=== PATIENT | male | born 1975 | race Caucasian/White ===

== ENCOUNTER 2016-12-03 08:24 | Emergency (ER) | payer OTHER ==
[2016-12-03 08:43] VITALS: BP 142/99; PULSE 91; RESP 18; TEMP 98.9
--- NOTE | 2016-12-03 08:55 | ED ---
General Adult HPI - General Chief complaint: Dental/Oral Stated complaint: DENTAL PAIN Time Seen by Provider: 12/03/16 08:43 Source: patient, RN notes reviewed Mode of arrival: ambulatory Limitations: no limitations - History of Present Illness Initial comments: Patient 40-year-old male who presents emergency room today with chief complaint of increased dental pain. He does admit to a fracture of tooth #5. He states that he was eating something a few days ago when it broke. He does admit to chronic dental problems. Since: Stents is unable to get in until next week. They're advised to come to the emergency room. Patient denies any drainage discharge. Denies any other complaints or associated symptoms. States is not taking any pain medications for this. Patient denies any recent fever, chills, shortness of breath, chest pain, back pain, abdominal pain, nausea or vomiting, numbness or tingling, dysuria or hematuria, constipation or diarrhea, headaches or visual changes, or any other complaints. - Related Data Home Medications Medication Instructions Recorded Confirmed ALPRAZolam [Xanax] 1 mg PO Q8HR 11/01/15 11/01/15 Citalopram Hydrobromide [CeleXA] 40 mg PO DAILY 11/01/15 11/01/15 Previous Rx's Medication Instructions Recorded Penicillin V Potassium [Pen Vee K] 500 mg PO TID #40 tab 11/01/15 traMADol HCl [Ultram] 50 mg PO Q4H PRN #20 tab 11/01/15 Acetaminophen-Codeine 300-30mg 1 each PO Q6H PRN #20 tablet 12/03/16 [Tylenol #3] Ibuprofen [Motrin] 800 mg PO Q6HR PRN #30 tab 12/03/16 Penicillin V Potassium [Pen Vee K] 500 mg PO QID 10 Days 12/03/16 Allergies Allergy/AdvReac Type Severity Reaction Status Date / Time No Known Allergies Allergy Verified 12/03/16 08:42 Review of Systems ROS Statement: Those systems with pertinent positive or pertinent negative responses have been documented in the HPI. ROS Other: All systems not noted in ROS Statement are negative. Past Medical History Past Medical History: No Reported History History of Any Multi-Drug Resistant Organisms: None Reported Past Surgical History: No Surgical Hx Reported Past Psychological History: Anxiety, Depression Smoking Status: Never smoker Past Alcohol Use History: None Reported Past Drug Use History: None Reported General Exam - General Exam Comments Initial Comments: General: The patient is awake and alert, in no distress, and does not appear acutely ill. Eye: Pupils are equal, round and reactive to light, extra-ocular movements are intact. No nystagmus. There is normal conjunctiva bilaterally. No signs of icterus. Ears, nose, mouth and throat: There are moist mucous membranes and no oral lesions. Patient does have poor dental hygiene. Does have a fracture Walls 2 type fracture of the fifth tooth. Multiple cavities and missing teeth. No sign of abscess. Neck: The neck is supple, there is no tenderness or JVD. Cardiovascular: There is a regular rate and rhythm. No murmur, rub or gallop is appreciated. Respiratory: Lungs are clear to auscultation, respirations are non-labored, breath sounds are equal. No wheezes, stridor, rales, or rhonchi. Musculoskeletal: Normal ROM, no tenderness. Strength 5/5. Sensation intact. Pulses equal bilaterally 2+. Neurological: A&O x 3. CN II-XII intact, There are no obvious motor or sensory deficits. Coordination appears grossly intact. Speech is normal. Skin: Skin is warm and dry and no rashes or lesions are noted. Psychiatric: Cooperative, appropriate mood & affect, normal judgment. Limitations: no limitations Course Vital Signs 12/03/16 08:40 Temperature 98.9 F Pulse Rate 91 Respiratory 18 Rate Blood Pressure 142/99 O2 Sat by Pulse 97 Oximetry Medical Decision Making - Medical Decision Making Patient will be started on antibiotics cover for infections given pain medications to use. Advised use [id number] topical gel for pain relief. Patient advised follow-up dentist as soon as possible. Disposition Clinical Impression: Pain, dental Disposition: HOME SELF-CARE Condition: Good Instructions: Toothache (ED) Additional Instructions: Please use medications as prescribed. Please follow-up with dentist as discussed. Please return to emergency room for any symptoms increase or worsen or for any other concerns. Prescriptions: Acetaminophen-Codeine 300-30mg [Tylenol #3] 1 each PO Q6H PRN #20 tablet PRN Reason: Pain Ibuprofen [Motrin] 800 mg PO Q6HR PRN #30 tab PRN Reason: Pain Penicillin V Potassium [Pen Vee K] 500 mg PO QID 10 Days Time of Disposition: 08:54
== END 2016-12-03 09:03 | disposition home or self-care (01) ==
LOC: EC 08:24
DX: S02.5XXA Fracture of tooth (traumatic), initial encounter for closed fracture (principal); F41.9 Anxiety disorder, unspecified; F32.9 Major depressive disorder, single episode, unspecified; Z79.899 Other long term (current) drug therapy; X58.XXXA Exposure to other specified factors, initial encounter
CPT/HCPCS: 99282

== ENCOUNTER 2017-04-30 01:21 | Emergency (ER) | payer OTHER ==
[2017-04-30 01:27] VITALS: BP 138/72; PULSE 84; RESP 18; TEMP 97.2
[2017-04-30] MEDS ORDERED: ACET/COD 300 MG/30 MG STARTER PACK 6 TAB BTL PO STA (02:04)
[2017-04-30] MEDS ORDERED: PENICILLIN VK 500MG STARTER 4 TAB BTL PO STA (02:04)
--- NOTE | 2017-04-30 02:07 | ED ---
ENT HPI - General Chief complaint: Dental/Oral Stated complaint: dental pain Time Seen by Provider: 04/30/17 01:46 Source: patient, RN notes reviewed, old records reviewed Mode of arrival: ambulatory Limitations: no limitations - History of Present Illness Initial comments: 41-year-old male presents emergency Department chief complaint of dental pain for the past 3 days. He has history of poor dentition. He does see a dental clinic in [place]. He reports he cannot have an appointment for the next 2 weeks. Patient states that he's had no fever or chills, denies any foul odor or discharge. Patient states that the pain is mainly over tooth 7, and right lower molars. Patient does have multiple teeth that are missing. - Related Data Home Medications Medication Instructions Recorded Confirmed ALPRAZolam [Xanax] 1 mg PO Q8HR 11/01/15 04/30/17 Citalopram Hydrobromide [CeleXA] 40 mg PO DAILY 11/01/15 04/30/17 Previous Rx's Medication Instructions Recorded Ibuprofen [Motrin] 800 mg PO Q6HR PRN #30 tab 12/03/16 Acetaminophen-Codeine 300-30mg 1 tab PO Q6H PRN #20 tablet 04/30/17 [Tylenol #3] Penicillin V Potassium [Pen Vee K] 500 mg PO QID #40 tab 04/30/17 Allergies Allergy/AdvReac Type Severity Reaction Status Date / Time No Known Allergies Allergy Verified 04/30/17 01:27 Review of Systems ROS Statement: Those systems with pertinent positive or pertinent negative responses have been documented in the HPI. ROS Other: All systems not noted in ROS Statement are negative. Past Medical History Past Medical History: No Reported History History of Any Multi-Drug Resistant Organisms: None Reported Past Surgical History: Hernia Repair Past Psychological History: Anxiety, Depression Smoking Status: Former smoker Past Alcohol Use History: None Reported Past Drug Use History: None Reported General Exam - General Exam Comments Initial Comments: 32-year-old male. Patient does not appear to be in any acute distress. Limitations: no limitations General appearance: alert, in no apparent distress Head exam: Present: atraumatic, normocephalic, normal inspection Eye exam: Present: normal appearance, PERRL, EOMI. Absent: scleral icterus, conjunctival injection, periorbital swelling ENT exam: Present: normal exam. Absent: normal oropharynx (poor dentition, patient has missing tooth 6-4. Patient reports pain on tooth 7 ) Neck exam: Present: normal inspection. Absent: tenderness, meningismus, lymphadenopathy Respiratory exam: Present: normal lung sounds bilaterally. Absent: respiratory distress, wheezes, rales, rhonchi, stridor Cardiovascular Exam: Present: regular rate, normal rhythm, normal heart sounds. Absent: systolic murmur, diastolic murmur, rubs, gallop, clicks GI/Abdominal exam: Present: soft, normal bowel sounds. Absent: distended, tenderness, guarding, rebound, rigid Extremities exam: Present: normal inspection, full ROM, normal capillary refill. Absent: tenderness, pedal edema, joint swelling, calf tenderness Back exam: Present: normal inspection Neurological exam: Present: alert, oriented X3, CN II-XII intact Psychiatric exam: Present: normal affect, normal mood Skin exam: Present: warm, dry, intact, normal color. Absent: rash Course Vital Signs 04/30/17 01:23 Temperature 97.2 F L Pulse Rate 84 Respiratory 18 Rate Blood Pressure 138/72 O2 Sat by Pulse 96 Oximetry Medical Decision Making - Medical Decision Making 41-year-old male presents emergency Department chief complaint of dental pain for the past 3 days. He has history of poor dentition. He does see a dental clinic in [place]. Patient has severely poor dentition, multiple missing teeth and dental caries on the remaining teeth. Patient's tender around tooth # 7. Patient be started on Pen-Vee K, pain medication. Discussed close follow- up with dental. Patient does not want to have a nerve block at this time. Patient is history plan will comply. Return parameters were discussed. Disposition Clinical Impression: Pain, dental Disposition: HOME SELF-CARE Condition: Good Instructions: Dental Abscess (ED), Dental Caries (ED) Additional Instructions: Patient has a follow-up with primary care provider. Return to emergency department if any alarming signs or symptoms occur. Prescriptions: Acetaminophen-Codeine 300-30mg [Tylenol #3] 1 tab PO Q6H PRN #20 tablet PRN Reason: Pain Penicillin V Potassium [Pen Vee K] 500 mg PO QID #40 tab Referrals: Rafita Barrera MD [Primary Care Provider] - 1-2 days Time of Disposition: 02:04
== END 2017-04-30 02:31 | disposition home or self-care (01) ==
LOC: EC 01:21
DX: K08.89 Other specified disorders of teeth and supporting structures (principal); K02.9 Dental caries, unspecified; F41.9 Anxiety disorder, unspecified; F32.9 Major depressive disorder, single episode, unspecified; Z87.891 Personal history of nicotine dependence; Z79.899 Other long term (current) drug therapy
CPT/HCPCS: 99283

== ENCOUNTER 2018-11-28 18:25 | Emergency (ER) | payer OTHER ==
[2018-11-28 18:34] VITALS: BP 139/90; PULSE 90; RESP 18; TEMP 98
[2018-11-28] MEDS ORDERED: ACET/COD 300 MG/30 MG STARTER PACK 6 TAB BTL PO STA (19:10)
--- NOTE | 2018-11-28 19:10 | ED ---
General Adult HPI - General Chief complaint: Dental/Oral Stated complaint: dental pain Time Seen by Provider: 11/28/18 18:34 Source: patient, RN notes reviewed, old records reviewed Mode of arrival: ambulatory Limitations: no limitations - History of Present Illness Initial comments: 42-year-old male patient presents to ED with dental pain. Patient reports he had a tooth break approximately 2 days ago. Patient reports he has had dental pain since. Patient denies any other complaints. Patient denies any chest pain returns with abdominal pain nausea vomiting diarrhea fevers or chills. Systemic: Pt denies fatigue, myalgia, fever/chills, rash. Pt denies weakness, night sweats, weight loss. Neuro: Pt denies headache, visual disturbances, syncope or pre-syncope. HEENT: Pt denies ocular discharge or irritation, otalgia, rhinorrhea, pharyngitis or notable lymphadenopathy. Cardiopulmonary: Pt denies chest pain, SOB, heart palpitations, dyspnea on exertion. Abdominal/GI: Pt denies abdominal pain, n/v/d. : Pt denies dysuria, burning w/ urination, frequency/urgency. Denies new onset urinary or bowel incontinence. MSK: Pt denies myalgia, loss of strength or function in extremities. Neuro: Pt denies new onset weakness, paresthesias. - Related Data Home Medications Medication Instructions Recorded Confirmed ALPRAZolam [Xanax] 1 mg PO Q8HR 11/01/15 04/30/17 Citalopram Hydrobromide [CeleXA] 40 mg PO DAILY 11/01/15 04/30/17 Previous Rx's Medication Instructions Recorded Ibuprofen [Motrin] 800 mg PO Q6HR PRN #30 tab 12/03/16 Acetaminophen-Codeine 300-30mg 1 tab PO Q6H PRN #20 tablet 04/30/17 [Tylenol #3] Penicillin V Potassium [Pen Vee K] 500 mg PO QID #40 tab 04/30/17 Amoxicillin/Potassium Clav 1 each PO Q12HR #20 tab 11/28/18 [Augmentin 875-125 Tablet] Allergies Allergy/AdvReac Type Severity Reaction Status Date / Time No Known Allergies Allergy Verified 11/28/18 18:34 Review of Systems ROS Statement: Those systems with pertinent positive or pertinent negative responses have been documented in the HPI. ROS Other: All systems not noted in ROS Statement are negative. Past Medical History Past Medical History: No Reported History History of Any Multi-Drug Resistant Organisms: None Reported Past Surgical History: Hernia Repair Past Psychological History: Anxiety, Depression Smoking Status: Former smoker Past Alcohol Use History: None Reported Past Drug Use History: None Reported General Exam - General Exam Comments Initial Comments: Constitutional: NAD, AOX3, Pt has pleasant affect. HEENT: NC/AT, trachea midline, neck supple, no lymphadenopathy. Posterior pharynx non erythematous, without exudates. External ears appear normal, without discharge. Mucous membranes moist. Eyes PERRLA, EOM intact. There is no scleral icterus. No pallor noted. Dental exam revealed poor dentition, patient has broken 8th tooth. Cardiopulmonary: RRR, no murmurs, rubs or gallops, no JVD noted. Lungs CTAB in anterior and posterior suero. No peripheral edema. Abdominal exam: Abdomen soft and non-distended. Abdomen non-tender to palpation in all 4 quadrants. Bowel sounds active in LLQ. No hepatosplenomegaly. No ecchymosis Neuro: CN II-XII grossly intact. No nuchal rigidity. MSK: No posterior calf tenderness bilaterally, homans sign negative bilaterally. Posterior tibialis and radial pulse +2 bilaterally. Sensation intact in upper and lower extremities. Full active ROM in upper and lower extremities, 5/5 stregnth. Limitations: no limitations Course Vital Signs 11/28/18 18:32 Temperature 98.0 F Pulse Rate 90 Respiratory 18 Rate Blood Pressure 139/90 O2 Sat by Pulse 98 Oximetry Medical Decision Making - Medical Decision Making 6-year-old male patient presents to ED with dental pain. Patient reports he had a tooth break approximately 2 days ago. Patient reports he has had dental pain since. Patient denies any other complaints. Patient denies any chest pain r eturns with abdominal pain nausea vomiting diarrhea fevers or chills. Pt VSS, afebrile. Physical exam displayed: Dental exam revealed poor dentition, patient has broken 8th tooth. Patient to be placed on amoxicillin. Patient also to be prescribed Tylenol 3 starter pack. Patient will follow-up with dentist as soon as possible. Patient return to ER condition worsens. Case discussed with Dr. Augustin. Disposition Clinical Impression: Pain, dental Disposition: HOME SELF-CARE Condition: Stable Instructions (If sedation given, give patient instructions): Dental Caries (ED), Toothache (ED) Additional Instructions: Patient to adhere to previously discussed treatment plan and will take medication(s) as directed. Patient to follow up with PCP in 1-2 days. Patient to return to ED if symptoms do not improve. Please take antibiotics as prescribed. Please do not drive if using pain medication. Please follow up with dentist as soon as possible. Prescriptions: Amoxicillin/Potassium Clav [Augmentin 875-125 Tablet] 1 each PO Q12HR #20 tab Is patient prescribed a controlled substance at d/c from ED?: No Referrals: None,Stated [Primary Care Provider] - 1-2 days Leesa Harrison DDS [STAFF PHYSICIAN] - 1-2 days Humza Caputo DDS [STAFF PHYSICIAN] - 1-2 days Kavya Soto DDS [STAFF PHYSICIAN] - 1-2 days
== END 2018-11-28 19:36 | disposition home or self-care (01) ==
LOC: EC 18:25
DX: K08.89 Other specified disorders of teeth and supporting structures (principal); F32.9 Major depressive disorder, single episode, unspecified; F41.9 Anxiety disorder, unspecified; Z87.891 Personal history of nicotine dependence; Z79.899 Other long term (current) drug therapy
CPT/HCPCS: 99283

== ENCOUNTER → 2019-07-11 | Outpatient (CLI) | payer OTHER ==
--- NOTE | 2019-07-11 10:13 | US ---
EXAMINATION TYPE: US abdomen limited DATE OF EXAM: 07/11/2019 COMPARISON: NONE CLINICAL HISTORY: R94.5 Abnormal results of liver function studies. Abnormal liver function test. EXAM MEASUREMENTS: Liver Length: 17.2 cm Gallbladder Wall: .3 cm CBD: .5 cm Right Kidney: 11.2 x 5.7 x 4.5 cm Pancreas: Obscured by bowel gas Liver: Increased attenuation Gallbladder: wnl Evidence for sonographic Frazier's sign: No CBD: wnl Right Kidney: wnl IMPRESSION: Probable fatty hepatic infiltration.
== END | disposition home or self-care (01) ==
LOC: RADUSWWP 09:42
PROVIDERS: ATTEND Internal Medicine
DX: R94.5 Abnormal results of liver function studies (principal)
CPT/HCPCS: 76705

== ENCOUNTER 2019-08-08 00:28 | Emergency (ER) | payer OTHER ==
[2019-08-08 00:42] VITALS: BP 135/81; PULSE 86; RESP 17; TEMP 98
[2019-08-08] MEDS ORDERED: Acetaminophen-Codeine 300-30mg TAB PO STA (00:57)
[2019-08-08] MEDS ORDERED: CLINDAMYCIN 150 MG CAP PO STA (00:57)
[2019-08-08] MEDS ORDERED: ACET/COD 300 MG/30 MG STARTER PACK 6 TAB BTL PO STA (00:57)
--- NOTE | 2019-08-08 01:01 | ED ---
ENT HPI - General Chief complaint: Dental/Oral Stated complaint: Dental Pain Time Seen by Provider: 08/08/19 00:40 Source: patient, RN notes reviewed, old records reviewed Mode of arrival: ambulatory Limitations: no limitations - History of Present Illness Initial comments: this is a 43-year-old male who presents today for evaluation regards to signific ant right tooth pain severe history of dental caries multiple teeth secondary to dental decay patient's seen his primary care doctor earlier in the week was prescribed NSAIDs as well as antibiotics he has had no improvement last 2 days. No recent traumas. No significant facial swelling. Patient is able to eat and drink. Denying fever. He does have significant history of recent heat dental abscesses MD complaint: tooth pain (right molar right upper) -: days(s) Location: tooth # (right upper molars) Severity: severe Severity scale (1-10): 9 Quality: stabbing, aching Consistency: constant Improves with: none Worsens with: none Context- Dental: history of dental caries, poor dental care Associated Symptoms: toothache - Related Data Home Medications Medication Instructions Recorded Confirmed ALPRAZolam [Xanax] 1 mg PO Q8HR 11/01/15 04/30/17 Citalopram Hydrobromide [CeleXA] 40 mg PO DAILY 11/01/15 04/30/17 Previous Rx's Medication Instructions Recorded Ibuprofen [Motrin] 800 mg PO Q6HR PRN #30 tab 12/03/16 Acetaminophen-Codeine 300-30mg 1 tab PO Q6H PRN #20 tablet 04/30/17 [Tylenol #3] Penicillin V Potassium [Pen Vee K] 500 mg PO QID #40 tab 04/30/17 Amoxicillin/Potassium Clav 1 each PO Q12HR #20 tab 11/28/18 [Augmentin 875-125 Tablet] Allergies Allergy/AdvReac Type Severity Reaction Status Date / Time No Known Allergies Allergy Verified 08/08/19 00:38 Review of Systems ROS Statement: Those systems with pertinent positive or pertinent negative responses have been documented in the HPI. ROS Other: All systems not noted in ROS Statement are negative. Past Medical History Past Medical History: No Reported History History of Any Multi-Drug Resistant Organisms: None Reported Past Surgical History: Hernia Repair Past Psychological History: Anxiety, Depression, Panic Disorder Smoking Status: Former smoker Past Alcohol Use History: None Reported Past Drug Use History: None Reported General Exam Limitations: no limitations General appearance: alert, in no apparent distress Head exam: Present: atraumatic, normocephalic, normal inspection Eye exam: Present: normal appearance, PERRL, EOMI. Absent: scleral icterus, conjunctival injection, periorbital swelling ENT exam: Present: normal exam, mucous membranes moist Expanded Teeth exam: Present: dental caries, fractured tooth #, dental tenderness #, other (right molar tenderness) Neck exam: Present: normal inspection. Absent: tenderness, meningismus, lymphadenopathy Respiratory exam: Present: normal lung sounds bilaterally. Absent: respiratory distress, wheezes, rales, rhonchi, stridor Cardiovascular Exam: Present: regular rate, normal rhythm, normal heart sounds. Absent: systolic murmur, diastolic murmur, rubs, gallop, clicks GI/Abdominal exam: Present: soft, normal bowel sounds. Absent: distended, tenderness, guarding, rebound, rigid Extremities exam: Present: normal inspection, full ROM, normal capillary refill. Absent: tenderness, pedal edema, joint swelling, calf tenderness Back exam: Present: normal inspection Neurological exam: Present: alert, oriented X3, CN II-XII intact Psychiatric exam: Present: normal affect, normal mood Skin exam: Present: warm, dry, intact, normal color. Absent: rash Course Vital Signs 08/08/19 00:38 Temperature 98.0 F Pulse Rate 86 Respiratory 17 Rate Blood Pressure 135/81 O2 Sat by Pulse 97 Oximetry Medical Decision Making - Medical Decision Making 43 male date ER for evaluation of significant dental disease dental caries will add antibiotic and increased pain control. Patient to follow up with dentist and primary care as originally planned Disposition Clinical Impression: Dental abscess, Dental caries Disposition: HOME SELF-CARE Condition: Good Instructions (If sedation given, give patient instructions): Dental Abscess (ED), Toothache (ED) Is patient prescribed a controlled substance at d/c from ED?: No Referrals: Malinda Encarnacion MD [Primary Care Provider] - 1-2 days
== END 2019-08-08 01:21 | disposition home or self-care (01) ==
LOC: EC 00:28
DX: K04.7 Periapical abscess without sinus (principal); K02.9 Dental caries, unspecified; K03.81 Cracked tooth; F41.0 Panic disorder [episodic paroxysmal anxiety]; F32.9 Major depressive disorder, single episode, unspecified; Z87.891 Personal history of nicotine dependence
CPT/HCPCS: 99283

== ENCOUNTER → 2024-11-23 | Outpatient (CLI) | payer OTHER | END | disposition home or self-care (01) | LOC: LABWHC1 14:16 | PROVIDERS: ATTEND Family Medicine | DX: E11.9 Type 2 diabetes mellitus without complications (principal) | CPT/HCPCS: 36415; 83036 ==